=== PATIENT | female | born 1975 | race Caucasian/White ===

== ENCOUNTER → 2019-12-31 | Outpatient (REF) | payer BC | LOC: M LAB REF 09:50 | PROVIDERS: ATTEND Physician Assistant | DX: D48.9 Neoplasm of uncertain behavior, unspecified (principal) ==

== ENCOUNTER → 2023-07-05 | Outpatient (REF) | payer BC | LOC: M SFHCDERM 17:37 | PROVIDERS: ATTEND Physician Assistant | DX: D48.9 Neoplasm of uncertain behavior, unspecified (principal) ==